=== PATIENT | female | born 1965 | race Caucasian/White ===

== ENCOUNTER 2019-08-28 18:16 | Inpatient (IN) ==
[2019-08-28] MEDS ORDERED: IOPAMIDOL 100 ML BOTTLE IV ONE (18:17)
[2019-08-28] MEDS ORDERED: ONDANSETRON 4 MG/2 ML VIAL IV ONE ×2 (18:42→22:50)
[2019-08-28] MEDS ORDERED: LACTATED RINGERS 1,000 ML IV ONE (18:42)
--- NOTE | 2019-08-28 18:44 | Emergency Department Note ---
Abdominal Pain HPI - General Chief Complaint: Abdominal Pain Stated Complaint: Right sided abdominal pain Time Seen by Provider: 08/28/19 18:38 Source: patient Mode of arrival: ambulatory Limitations: no limitations - History of Present Illness HPI Narrative: This patient has had right lower quadrant pain since last evening. It has gotten worse and is associated with some nausea and vomiting. She thought she was constipated and tried some mag citrate without relief. - Related Data Previous Rx's Medication Instructions Recorded sulfamethoxazole 800 1 tab PO BID #20 tab 04/16/18 mg-trimethoprim 160 mg tablet Allergies Allergy/AdvReac Type Severity Reaction Status Date / Time Penicillins Allergy Intermediate Hives Verified 04/16/18 11:24 Review of Systems All systems ED: reviewed and negative except as stated. Abdominal Pain PMH - Past Medical History [facility] Narrative: Medical History (Last Reviewed 04/16/18 @ 11:44 by Randi Sanches DO) Crush injury of left foot (Acute) Contusion of foot, left (Acute) Medical history: Reports: no medical history WASTE HAND history: Reports: non-contributory - Social History Smoking status: Current every day smoker Physical Exam Limitations: no limitations General appearance: alert Head: atraumatic Eye: Present: normal appearance ENT: Present: normal exam Neck: Present: normal inspection Chest: Present: normal inspection Respiratory: Present: normal lung sounds bilaterally Cardiovascular: Present: regular rate, normal rhythm, normal heart sounds Abdominal: Present: soft, tenderness, guarding, diminished bowel sounds. Absent: distention, rebound, rigidity Abdominal tenderness: Present: RLQ, moderate Neurological: Present: alert Psychiatric: Present: normal affect Skin: Present: warm, dry Course Vital Signs Temperature 98.4 F 08/28/19 18:16 Pulse Rate 91 H 08/28/19 18:16 Respiratory Rate 20 08/28/19 18:16 Blood Pressure 104/69 08/28/19 18:16 Pulse Oximetry (%) 97 08/28/19 18:16 Temperature 98.4 F 08/28/19 18:16 Pulse Rate 81 08/28/19 21:16 Respiratory Rate 20 08/28/19 18:16 Blood Pressure 111/68 08/28/19 21:16 Pulse Oximetry (%) 96 08/28/19 21:16 Abdominal Pain - [facility] Narrative Medical decision making narrative: CT scan shows acute appendicitis with marked dilatation of the appendix and some fluid around the appendiceal area. I discussed the case with the surgeon who will come to see the patient. - Lab Data Lab results reviewed: Yes I reviewed the patient's lab results. Result diagrams: 08/28/19 18:48 08/28/19 18:48 Lab Results 08/28/19 08/28/19 08/28/19 Range/Units 18:48 18:48 18:48 WBC 17.6 H (4.50-11.00) K/mcL RBC 4.84 (3.59-5.38) M/mcL Hgb 14.6 (11.2-15.7) g/dL Hct 43.7 (34.1-44.9) % POC Hct (36.0-48.0) % MCV 90.3 (80.0-100.0) fL MCH 30.2 (26.0-34.0) pg MCHC 33.4 (31.0-36.0) g/dL RDW 14.3 (11.5-14.5) % Plt Count 257 (140-440) K/mcL MPV 11.6 H (7.4-10.4) fL Gran % 86.1 H (38.0-78.0) % Lymph % (Auto) 7.4 L (15.5-49.0) % [place] % (Auto) 5.9 (1.0-12.0) % Eos % (Auto) 0.4 (0.0-7.0) % Baso % (Auto) 0.2 (0.0-2.0) % Gran # 15.19 H (1.80-8.00) K/mcL Lymph # (Auto) 1.30 L (1.50-4.80) K/mcL [place] # (Auto) 1.04 H (0.10-0.90) K/mcL Eos # (Auto) 0.07 (0.00-0.70) K/mcL Baso # (Auto) 0.03 (0.00-0.30) K/mcL POC Sodium (133-145) mmol/L Sodium 134 (133-145) mmol/L POC Potassium (3.3-5.1) mmol/L Potassium 4.2 (3.3-5.1) mmol/L POC Chloride (96-108) mmol/L Chloride 98 (96-108) mmol/L Carbon Dioxide 20 L (22-30) mmol/L POC Total CO2 (22-30) mmol/L Anion Gap 16.0 (8-16) POC BUN (6-20) mg/dl BUN 12 (6-20) mg/dl Creatinine 0.8 (0.6-1.1) mg/dl POC Creatinine (0.6-1.1) mg/dl GFR Calculation 82 Glucose 107 H (70-105) mg/dL POC Glucose (70-105) mg/dL Calcium 9.3 (8.6-10.4) mg/dl POC WB Ioniz Calcium (1.16-1.32) mmol/L Total Bilirubin 0.4 (0.0-1.0) mg/dL AST 22 (0-37) U/l ALT 20 (0-40) U/l Alkaline Phosphatase 109 (39-117) U/L Total Protein 7.2 (5.9-8.4) gm/dL Albumin 4.5 (3.2-5.2) gm/dL Globulin 2.7 (2.2-3.7) gm/dL Albumin/Globulin Ratio 1.7 (1.0-2.3) Lipase 57 (7-60) U/L Urine Color Yellow Urine Appearance Turbid Urine pH 5.0 (5.0-9.0) Ur Specific [place] 1.025 (1.000-1.035) Urine Protein Neg (NEG) mg/dL Urine Glucose (UA) Negative (NEG) mg/dL Urine Ketones Neg (NEG) mg/dL Urine Occult Blood 0.2 A (<0.03) mg/dL Urine Nitrate Neg (NEG) Urine Bilirubin Neg (NEG) mg/dL Urine Urobilinogen Neg (NEG) mg/dL Ur Leukocyte Esterase Neg (NEG) /uL Urine RBC 2 H (0-1) /hpf Urine WBC 2 (0-4) /hpf Ur Squamous Epith Cells 4 (0-4) /hpf Urine Bacteria 0 (0) /hpf Urine Mucus Many A (0) /hpf Ur Culture Indicated? No 08/28/19 Range/Units 18:53 WBC (4.50-11.00) K/mcL RBC (3.59-5.38) M/mcL Hgb (11.2-15.7) g/dL Hct (34.1-44.9) % POC Hct 45.0 (36.0-48.0) % MCV (80.0-100.0) fL MCH (26.0-34.0) pg MCHC (31.0-36.0) g/dL RDW (11.5-14.5) % Plt Count (140-440) K/mcL MPV (7.4-10.4) fL Gran % (38.0-78.0) % Lymph % (Auto) (15.5-49.0) % [place] % (Auto) (1.0-12.0) % Eos % (Auto) (0.0-7.0) % Baso % (Auto) (0.0-2.0) % Gran # (1.80-8.00) K/mcL Lymph # (Auto) (1.50-4.80) K/mcL [place] # (Auto) (0.10-0.90) K/mcL Eos # (Auto) (0.00-0.70) K/mcL Baso # (Auto) (0.00-0.30) K/mcL POC Sodium 135 (133-145) mmol/L Sodium (133-145) mmol/L POC Potassium 4.2 (3.3-5.1) mmol/L Potassium (3.3-5.1) mmol/L POC Chloride 103 (96-108) mmol/L Chloride (96-108) mmol/L Carbon Dioxide (22-30) mmol/L POC Total CO2 25 (22-30) mmol/L Anion Gap (8-16) POC BUN 15 (6-20) mg/dl BUN (6-20) mg/dl Creatinine (0.6-1.1) mg/dl POC Creatinine 0.8 (0.6-1.1) mg/dl GFR Calculation Glucose (70-105) mg/dL POC Glucose 107 H (70-105) mg/dL Calcium (8.6-10.4) mg/dl POC WB Ioniz Calcium 1.12 L (1.16-1.32) mmol/L Total Bilirubin (0.0-1.0) mg/dL AST (0-37) U/l ALT (0-40) U/l Alkaline Phosphatase (39-117) U/L Total Protein (5.9-8.4) gm/dL Albumin (3.2-5.2) gm/dL Globulin (2.2-3.7) gm/dL Albumin/Globulin Ratio (1.0-2.3) Lipase (7-60) U/L Urine Color Urine Appearance Urine pH (5.0-9.0) Ur Specific [place] (1.000-1.035) Urine Protein (NEG) mg/dL Urine Glucose (UA) (NEG) mg/dL Urine Ketones (NEG) mg/dL Urine Occult Blood (<0.03) mg/dL Urine Nitrate (NEG) Urine Bilirubin (NEG) mg/dL Urine Urobilinogen (NEG) mg/dL Ur Leukocyte Esterase (NEG) /uL Urine RBC (0-1) /hpf Urine WBC (0-4) /hpf Ur Squamous Epith Cells (0-4) /hpf Urine Bacteria (0) /hpf Urine Mucus (0) /hpf Ur Culture Indicated? - Radiology Data Radiology results reviewed: Yes I reviewed the patient's radiology results. Disposition Pt seen by [employer]/PA only: No Clinical Impression: Acute appendicitis Disposition: Xfer As Outpt/Obs ([facility]) Condition: Good Referrals: No,PCP [Primary Care Provider] - Time of Disposition: 21:22
[2019-08-28] MEDS ORDERED: HYDROmorphone 2 MG/ML VIAL IV SCH (18:45)
[2019-08-28 18:57] LABS: POC Blood Urea Nitrogen 15 mg/dl (6-20); POC CO2 25 mmol/L (22-30); POC Calcium, Ionized 1.12 mmol/L (1.16-1.32); POC Chloride 103 mmol/L (96-108); POC Creatinine 0.8 mg/dl (0.6-1.1); POC Glucose, Random 107 mg/dL (70-105); POC Potassium 4.2 mmol/L (3.3-5.1); POC Sodium 135 mmol/L (133-145)
[2019-08-28 19:35] LABS: Basophils # (Auto) 0.03 K/mcL (0.00-0.30); Basophils % (Auto) 0.2 % (0.0-2.0); Eosinophils # (Auto) 0.07 K/mcL (0.00-0.70); Eosinophils % (Auto) 0.4 % (0.0-7.0); Granulocytes % (Auto) 86.1 % (38.0-78.0); Hematocrit 43.7 % (34.1-44.9); Hemoglobin 14.6 g/dL (11.2-15.7); Lymphocytes % (Auto) 7.4 % (15.5-49.0); Mean Cell Volume 90.3 fL (80.0-100.0); Mean Corpuscular HGB Conc 33.4 g/dL (31.0-36.0); Mean Platelet Volume 11.6 fL (7.4-10.4); Monocytes # (Auto) 1.04 K/mcL (0.10-0.90); Monocytes % (Auto) 5.9 % (1.0-12.0); Platelet Count 257 K/mcL (140-440); RBC 4.84 M/mcL (3.59-5.38); Red Cell Distribution Width 14.3 % (11.5-14.5); WBC 17.6 K/mcL (4.50-11.00)
[2019-08-28 19:46] LABS: Appearance,Urine TURBID; Bacteria,Urine 0 /hpf (0); Bilirubin,Urine NEG (NEG); Color,Urine YELLOW; Culture Indicated,Urine NO; Glucose,Urine (UA) NEGATIVE (NEG); Ketones,Urine NEG (NEG); Leukocyte Esterase,Urine NEG /uL (NEG); Mucus,Urine MANY /hpf (0); Nitrate,Urine NEG (NEG); Protein,Urine NEG (NEG); Specific Gravity,Urine 1.025 (1.000-1.035); Urine Blood 0.2 mg/dL (<0.03); Urine RBC 2 /hpf (0-1); Urine Squamous Epithelial Cell 4 /hpf (0-4); Urine WBC 2 /hpf (0-4); Urobilinogen,Urine NEG (NEG)
--- NOTE | 2019-08-28 19:46 | Cat Scan Report ---
CLINICAL INFORMATION: Right lower quadrant pain COMPARISON: None. TECHNIQUE: Following enteric contrast, 80 cc of Isovue-370 were injected intravenously, and 60 seconds later, 0.625 mm helical slices were obtained from the mid heart through the subtrochanteric regions. Following reconstruction, 2.5 mm sagittal, coronal and axial reformatted images were processed and reviewed at bone, lung and soft tissue windows. Five minutes later, 0.625 mm helical slices were obtained from the mid heart through the kidneys and viewed at soft tissue windows.The exam was performed using radiation dose optimization techniques including, but not limited to, automated exposure control, adjustment of the mA and/or kV according to patient size and use of iterative reconstruction technique. FINDINGS: Lung bases show no abnormality. No effusions. The visualized heart is normal. Abdominal images show mild fatty change of the liver with scattered simple hepatic cysts ranging up to 2.6 cm in the lateral segment of the left hepatic lobe. Gallbladder and bile ducts are normal: CBD is 5 mm. Both kidneys, adrenal glands, spleen, pancreas and aorta, aortic branches are normal in size configuration and attenuation without focal lesion. There is no free air, free fluid or adenopathy Pelvic images show hysterectomy changes. Ovaries not identified and are likely surgically absent. Urinary bladder is unremarkable. The appendix, located in the lateral pericecal region, is massively dilated with diameter of 17 mm. There is also moderate wall thickening and inflammation of the periappendiceal fat. The cecal wall shows mild sympathetic thickening and there is a 7.2 cm thin-walled fluid collection in the medial pericecal region. This may represent an abscess. The stomach, small bowel and large bowel are unremarkable. Bone windows show no osseous abnormality. IMPRESSION: 1. Appendicitis. The appendix is massively dilated in a prerupture state. It is located in the lateral pericecal region. A 7 x 2 cm fluid collection, likely an abscess, is located in the medial pericecal region. 2. Scattered simple hepatic cysts ranging up to 2.6 cm Interpreted and Authenticated by: Ventura Cano 08/28/19
[2019-08-28 19:52] LABS: ALT/SGPT 20 U/l (0-40); AST/SGOT 22 U/l (0-37); Albumin 4.5 gm/dL (3.2-5.2); Albumin/Globulin Ratio 1.7 (1.0-2.3); Alkaline Phosphatase 109 U/L (39-117); Bilirubin,Total 0.4 mg/dL (0.0-1.0); Blood Urea Nitrogen 12 mg/dl (6-20); Calcium 9.3 mg/dl (8.6-10.4); Carbon Dioxide 20 mmol/L (22-30); Chloride 98 mmol/L (96-108); Globulin 2.7 gm/dL (2.2-3.7); Glomerular Filtration Rate 82; Glucose 107 mg/dL (70-105)
[2019-08-28] MEDS ORDERED: LEVOFLOXACIN 750 MG/150 ML BAG IV ONE (20:26)
[2019-08-28] MEDS ORDERED: metroNIDAZOLE 500 MG/100 ML BAG IV ONE (20:26)
[2019-08-28] MEDS: HYDROmorphone 2 MG/ML VIAL IV PRN ×2 (20:51→21:55)
--- NOTE | 2019-08-28 22:04 | General Surg History&Physical ---
History of Present Illness Patient information: Note initiated : 08/28/19 at 10:02 pm Service Date, if different from initiated Date: [] Patient: Tadeo Reyes a 54 y/o F admitted on for Right sided abdominal pain. Chief Complaint: abdominal pain HPI: Ms. Reyes is a 54 year old F came to the emergency room at [facility] this evening with a complaint of one day of right lower quadrant pain. She initially thought that this was related to constipation and took magnesium citrate. She had abundant bowel activity but the pain persisted and worsened. She reports having had chills but denies having known fever. She denies prior similar symptoms. She denies any past history of GI disease. She reports sever al sections and a "partial hysterectomy" both of which were done in an open fashion. Review of Systems - Gastrointestinal abdominal pain, no diarrhea, no nausea, no vomiting Past History Past medical history: Medical History (Last Reviewed 04/16/18 @ 11:44 by Randi Sanches DO) Crush injury of left foot (Acute) Contusion of foot, left (Acute) Past family history: Non-contributory Past social history: Here with SO and daughter Medications and Allergies Home Medications Medication Instructions Recorded Confirmed Type No Known Home Meds 08/28/19 08/28/19 History Allergies Allergy/AdvReac Type Severity Reaction Status Date / Time Penicillins Allergy Intermediate Hives Verified 04/16/18 11:24 Exam Temp Pulse Resp BP Pulse Ox 98.4 F 84 20 130/80 99 08/28/19 18:16 08/28/19 21:31 08/28/19 18:16 08/28/19 21:31 08/28/19 21:31 - General physical appearance well developed, well nourished, no distress - Eyes PERRL, normal ocular movement - Cardiovascular Cardiovascular exam IM: Present: normal rate and rhythm - Respiratory normal expansion, normal respiratory effort - Abdomen Abdomen: Present: tender (right lower quadrant), surgical scars. Absent: masses, guarding, rigid, rebound - Integumentary Present: no rash, no growths, no abnormal pigmentation - Neurologic Present: normal coordination, normal sensation - Psychiatric Present: oriented to time, oriented to person, oriented to place, speech is normal, memory intact Results - Results Labs: Laboratory Results - last 24 hr 08/28/19 08/28/19 08/28/19 18:48 18:48 18:48 WBC 17.6 H RBC 4.84 Hgb 14.6 Hct 43.7 POC Hct MCV 90.3 MCH 30.2 MCHC 33.4 RDW 14.3 Plt Count 257 MPV 11.6 H Gran % 86.1 H Lymph % (Auto) 7.4 L [place] % (Auto) 5.9 Eos % (Auto) 0.4 Baso % (Auto) 0.2 Gran # 15.19 H Lymph # (Auto) 1.30 L [place] # (Auto) 1.04 H Eos # (Auto) 0.07 Baso # (Auto) 0.03 POC Sodium Sodium 134 POC Potassium Potassium 4.2 POC Chloride Chloride 98 Carbon Dioxide 20 L POC Total CO2 Anion Gap 16.0 POC BUN BUN 12 Creatinine 0.8 POC Creatinine GFR Calculation 82 Glucose 107 H POC Glucose Calcium 9.3 POC WB Ioniz Calcium Total Bilirubin 0.4 AST 22 ALT 20 Alkaline Phosphatase 109 Total Protein 7.2 Albumin 4.5 Globulin 2.7 Albumin/Globulin Ratio 1.7 Lipase 57 Urine Color Yellow Urine Appearance Turbid Urine pH 5.0 Ur Specific [place] 1.025 Urine Protein Neg Urine Glucose (UA) Negative Urine Ketones Neg Urine Occult Blood 0.2 A Urine Nitrate Neg Urine Bilirubin Neg Urine Urobilinogen Neg Ur Leukocyte Esterase Neg Urine RBC 2 H Urine WBC 2 Ur Squamous Epith Cells 4 Urine Bacteria 0 Urine Mucus Many A Ur Culture Indicated? No 08/28/19 18:53 WBC RBC Hgb Hct POC Hct 45.0 MCV MCH MCHC RDW Plt Count MPV Gran % Lymph % (Auto) [place] % (Auto) Eos % (Auto) Baso % (Auto) Gran # Lymph # (Auto) [place] # (Auto) Eos # (Auto) Baso # (Auto) POC Sodium 135 Sodium POC Potassium 4.2 Potassium POC Chloride 103 Chloride Carbon Dioxide POC Total CO2 25 Anion Gap POC BUN 15 BUN Creatinine POC Creatinine 0.8 GFR Calculation Glucose POC Glucose 107 H Calcium POC WB Ioniz Calcium 1.12 L Total Bilirubin AST ALT Alkaline Phosphatase Total Protein Albumin Globulin Albumin/Globulin Ratio Lipase Urine Color Urine Appearance Urine pH Ur Specific [place] Urine Protein Urine Glucose (UA) Urine Ketones Urine Occult Blood Urine Nitrate Urine Bilirubin Urine Urobilinogen Ur Leukocyte Esterase Urine RBC Urine WBC Ur Squamous Epith Cells Urine Bacteria Urine Mucus Ur Culture Indicated? CT scan - abdomen: report reviewed, image reviewed CT scan - chest: report reviewed, image reviewed (Report and images reviewed. Discussed with radiologist. Impression is that of ruptured appendicitis with stool and gas filled dilated appendix.) Assessment and Plan (1) Acute appendicitis Impression is of acute appendicitis with perforation and abscess. I had a discussion with the patient regarding her options including appendectomy as well as percutaneous drain placement and delayed interval appendectomy. She wishes to proceed with appendectomy at this time to prevent future need for surgery or other possible complications arising following percutaneous drainage. She understands that an open technique will be needed for immediate appendectomy and drainage of abscess. She understands the likelihood surgical drain will be placed and that several days in the hospital will be likely needed for recurrent recovery. She understands that the abscess frequently is associated with a large amount of inflammation and indurated tissue that can involve adjacent structures such as bowel and bladder and that there is potential for injury to the structures inadvertently during appendectomy and abscess drainage. Understanding all of the above she voices her desire to proceed with open appendectomy as soon as possible. Status: Acute Qualifiers: Appendicitis perforation presence: with perforation Appendicitis abscess presence: with abscess
[2019-08-28] MEDS ORDERED: MAGNESIUM HYDROXIDE 30 ML ORAL.SUSP PO PRN (22:18)
[2019-08-28] MEDS ORDERED: ACETAMINOPHEN 325 MG TABLET PO PRN (22:18)
[2019-08-28] MEDS ORDERED: ONDANSETRON 4 MG/2 ML VIAL IV PRN ×2 (22:18→23:16)
[2019-08-28] MEDS ORDERED: KETOROLAC 30 MG/ML VIAL IV PRN (22:18)
[2019-08-28] MEDS ORDERED: LACTATED RINGERS 1,000 ML IV SCH ×2 (22:30→23:30)
[2019-08-28] MEDS ORDERED: LEVOFLOXACIN 500 MG/100 ML BAG IV SCH (22:30)
[2019-08-28] MEDS ORDERED: metroNIDAZOLE 500 MG/100 ML BAG IV SCH (22:30)
[2019-08-28] MEDS ORDERED: fentaNYL 100 MCG/2 ML VIAL IV ONE ×2 (22:50→23:56)
[2019-08-28] MEDS ORDERED: ROPIVACAINE HCL/PF 30 ML VIAL IJ ONE (22:50)
[2019-08-28] MEDS ORDERED: ROCURONIUM 10 MG/ML ML IV ONE (22:50)
[2019-08-28] MEDS ORDERED: PROPOFOL 200 MG/20 ML VIAL IV ONE (22:50)
[2019-08-28] MEDS ORDERED: LIDOCAINE HCL/PF 100 MG/5 ML SYRINGE IV ONE (22:50)
[2019-08-28] MEDS ORDERED: GLYCOPYRROLATE 0.2 MG/ML VIAL IV ONE (22:50)
[2019-08-28] MEDS ORDERED: MIDAZOLAM 2 MG/2 ML VIAL IV ONE (22:50)
[2019-08-28] MEDS ORDERED: NEOSTIGMINE 1 MG/ML VIAL IV ONE (22:50)
[2019-08-28] MEDS ORDERED: DEXAMETHASONE 10 MG/ML VIAL IV ONE (22:50)
[2019-08-28] MEDS ORDERED: IPRATROPIUM/ALBUTEROL 3 ML AMPUL.NEB NEB PRN (23:16)
[2019-08-28] MEDS ORDERED: HYDROmorphone 2 MG/ML VIAL IV PRN (23:16)
[2019-08-28] MEDS ORDERED: PROMETHAZINE 25 MG/ML VIAL IV PRN (23:16)
[2019-08-28] MEDS ORDERED: MEPERIDINE 25 MG/ML SYRINGE IV PRN (23:16)
[2019-08-28] MEDS ORDERED: KETOROLAC 15 MG/ML VIAL IV PRN (23:16)
[2019-08-28] MEDS ORDERED: GUM MASTIC/STORAX/MSAL/ALCOHOL 1 DOSE DROPERETTE TOPICAL ONE (23:34)
--- NOTE | 2019-08-28 23:54 | Brief Operative Note ---
Date of procedure: 08/28/19 Pre-op diagnosis: perforated appendix with abscess Post-op diagnosis: other (gangrenous appendix with the adjacent loculated cloudy fluid collection) Procedure: Open appendectomy Anesthesia: GETA Findings: Gangrenous appendix, apparent full-thickness with loculated cloudy fluid collection adjacent to the base of the appendix Complications: none Surgeon: Aric Mullins Specimens Removed/Pathology: (appendix) Condition: stable Disposition: PACU
[2019-08-28] MEDS: fentaNYL 100 MCG/2 ML VIAL IV PRN (23:58)
[2019-08-29] MEDS: fentaNYL 100 MCG/2 ML VIAL IV PRN (00:06)
[2019-08-29] MEDS ORDERED: fentaNYL 100 MCG/2 ML VIAL IV PRN (00:26)
[2019-08-29] MEDS ORDERED: HYDROmorphone 2 MG/ML VIAL IV SCH (00:26)
[2019-08-29] MEDS ORDERED: MEPERIDINE 25 MG/ML SYRINGE IV PRN (00:26)
[2019-08-29] MEDS ORDERED: MAGNESIUM HYDROXIDE 30 ML ORAL.SUSP PO PRN (00:26)
[2019-08-29] MEDS ORDERED: PROMETHAZINE 25 MG/ML VIAL IV PRN (00:26)
[2019-08-29] MEDS ORDERED: ONDANSETRON 4 MG/2 ML VIAL IV PRN ×2 (00:26)
[2019-08-29] MEDS ORDERED: IPRATROPIUM/ALBUTEROL 3 ML AMPUL.NEB NEB PRN (00:26)
[2019-08-29] MEDS ORDERED: HYDROmorphone 2 MG/ML VIAL IV PRN ×2 (00:26)
[2019-08-29] MEDS ORDERED: KETOROLAC 15 MG/ML VIAL IV PRN (00:26)
[2019-08-29] MEDS: LACTATED RINGERS 1,000 ML IV SCH ×4 (00:37→22:39)
[2019-08-29] MEDS ORDERED: HYDROmorphone 2 MG/ML VIAL ONE (00:40)
[2019-08-29] MEDS ORDERED: KETOROLAC 30 MG/ML VIAL ONE (00:41)
[2019-08-29] MEDS: KETOROLAC 30 MG/ML VIAL IV SCH ×4 (01:16→18:03)
[2019-08-29] MEDS ORDERED: 0.9 % SODIUM CHLORIDE 10 ML SYRINGE IV SCH (06:00)
[2019-08-29] MEDS: 0.9 % SODIUM CHLORIDE 10 ML SYRINGE IV SCH ×3 (06:16→21:32)
[2019-08-29] MEDS: metroNIDAZOLE 500 MG/100 ML BAG IV SCH ×3 (06:32→21:29)
[2019-08-29] MEDS: HEPARIN 5,000 UNIT/ML VIAL SQ SCH ×2 (08:50→21:31)
[2019-08-29] MEDS ORDERED: HEPARIN 5,000 UNIT/ML VIAL SQ SCH (09:00)
--- NOTE | 2019-08-29 09:22 | General Surgery Progress Note ---
Subjective Patient reports: no new complaints, tolerating liquids well, afebrile Narrative: Note initiated : 08/29/19 at 9:21 am Service Date, if different from initiated Date: [] Patient: Tadeo Reyes 54 y/o F admitted on 08/29/19 for Right sided abdominal pain. Chief Complaint: s/p open appe Pertinent ROS: Tolerating clears, no nausea Objective Temp Pulse Resp BP Pulse Ox 98.4 F 66 18 91/59 93 08/29/19 08:00 08/29/19 08:00 08/29/19 08:00 08/29/19 08:00 08/29/19 08:00 - Additional Data Intake & Output - Last 24 hours: Intake & Output 08/27/19 08/28/19 08/29/19 08/30/19 05:59 05:59 05:59 05:59 Intake Total 2303 1660 Output Total 57 225 Balance 2246 1435 Weight 150 lb - General physical appearance no distress - Respiratory normal respiratory effort - Abdomen soft, non tender - Labs 08/28/19 18:48 08/28/19 18:48 Diabetes panel 08/28/19 Range/Units 18:48 Sodium 134 (133-145) mmol/L Potassium 4.2 (3.3-5.1) mmol/L Chloride 98 (96-108) mmol/L Carbon Dioxide 20 L (22-30) mmol/L BUN 12 (6-20) mg/dl Creatinine 0.8 (0.6-1.1) mg/dl Glucose 107 H (70-105) mg/dL Calcium 9.3 (8.6-10.4) mg/dl AST 22 (0-37) U/l ALT 20 (0-40) U/l Alkaline Phosphatase 109 (39-117) U/L Total Protein 7.2 (5.9-8.4) gm/dL Albumin 4.5 (3.2-5.2) gm/dL Calcium panel 08/28/19 Range/Units 18:48 Calcium 9.3 (8.6-10.4) mg/dl Albumin 4.5 (3.2-5.2) gm/dL Pituitary panel 08/28/19 Range/Units 18:48 Sodium 134 (133-145) mmol/L Potassium 4.2 (3.3-5.1) mmol/L Chloride 98 (96-108) mmol/L Carbon Dioxide 20 L (22-30) mmol/L BUN 12 (6-20) mg/dl Creatinine 0.8 (0.6-1.1) mg/dl Glucose 107 H (70-105) mg/dL Calcium 9.3 (8.6-10.4) mg/dl Adrenal panel 08/28/19 Range/Units 18:48 Sodium 134 (133-145) mmol/L Potassium 4.2 (3.3-5.1) mmol/L Chloride 98 (96-108) mmol/L Carbon Dioxide 20 L (22-30) mmol/L BUN 12 (6-20) mg/dl Creatinine 0.8 (0.6-1.1) mg/dl Glucose 107 H (70-105) mg/dL Calcium 9.3 (8.6-10.4) mg/dl Total Bilirubin 0.4 (0.0-1.0) mg/dL AST 22 (0-37) U/l ALT 20 (0-40) U/l Alkaline Phosphatase 109 (39-117) U/L Total Protein 7.2 (5.9-8.4) gm/dL Albumin 4.5 (3.2-5.2) gm/dL Assessment and Plan (1) Acute appendicitis Status: Acute Assessment and plan: S/P open appe with wound contamination. Advance diet slowly as tolerated Ambulate Symptom management Await bowel function Anticipate dressing change tomorrow Dr. Jeffers will follow from here Current Visit: Yes - Time Spent With Patient Total time spent is greater than 50% in coordination of care (as documented) at patient's floor/unit and/or counseling patient:
[2019-08-29] MEDS: LEVOFLOXACIN 500 MG/100 ML BAG IV SCH (14:04)
[2019-08-30] MEDS: KETOROLAC 30 MG/ML VIAL IV SCH ×4 (00:08→17:58)
[2019-08-30] MEDS: 0.9 % SODIUM CHLORIDE 10 ML SYRINGE IV SCH ×3 (06:01→21:33)
[2019-08-30] MEDS: metroNIDAZOLE 500 MG/100 ML BAG IV SCH ×3 (06:01→21:32)
--- NOTE | 2019-08-30 07:19 | Operative Note ---
DATE OF OPERATION: 08/29/2019 DATE OF PROCEDURE: 08/28/2019 PREOPERATIVE DIAGNOSIS: Perforated appendicitis with abscess. POSTOPERATIVE DIAGNOSIS: Gangrenous appendix with adjacent loculated fluid collection. PROCEDURE PERFORMED: Open appendectomy with drainage of adjacent loculated fluid collection and washout. SURGEON: Aric Mullins M.D. ANESTHESIA: General. ESTIMATED BLOOD LOSS: Negligible. COMPLICATIONS: None. SPECIMEN: Appendix. DRAINS: None. PROCEDURE IN DETAIL: After induction of general anesthetic, patient's abdomen was cleaned with ChloraPrep solution prior to being sterilely draped. An infraumbilical incision was made in the previous vertical midline section scar. Midline fascia was divided, and the peritoneum was entered under direct vision. The abdominal contents were examined. There was noted to be an inflamed, dilated appendix with areas of what appeared to be full-thickness necrosis. A window was made in the appendiceal mesentery at the base of the appendix. The stapler was then used to come across the base of the appendix. The appendiceal mesentery was divided using a LigaSure-type instrument. Good hemostasis was noted. The appendix was sent for pathological examination. Examination of the pelvis revealed loculated pericecal fluid collection containing cloudy fluid. These were taken down manually, and 1.5 liters of normal saline was then used to irrigate the pelvis and the right lower quadrant. The bowel and omentum was then returned to its anatomical position. The midline fascia was then closed using a series of [id number] 0 Vicryl sutures. The skin was closed using stainless steel clips between the fairly widely- justina. Quarter-inch Nu Gauze tape was placed as a wick mechanism. The wound was then dressed with Telfa and Tegaderm dressing. The patient was at this point awakened, extubated, and transferred to the recovery room in stable and good condition. DEN:carolyn Job ID: [id number] Doc ID: [id number] Aric Mullins MD
[2019-08-30] MEDS: LEVOFLOXACIN 500 MG/100 ML BAG IV SCH (09:10)
[2019-08-30] MEDS: HEPARIN 5,000 UNIT/ML VIAL SQ SCH ×2 (09:11→21:33)
--- NOTE | 2019-08-30 10:34 | Surgical Pathology Report ---
HISTOLOGY SPECIMEN MICROSCOPIC DIAGNOSIS APPENDIX, APPENDECTOMY: -- PERFORATED ACUTE APPENDICITIS WITH SEROSITIS. (DMT:adj) CLINICAL HISTORY Appendicitis. GROSS DESCRIPTION Received in formalin labeled with the patient information, is a 7.3 cm long by up to 1.7 cm in diameter purple-aguiar appendix with up to 3.8 cm of attached yellow-gaytan adipose tissue. The margin has been stapled closed. Adjacent to the margin there is a 0.5 cm perforation. The lumen contains thick red-brown fecal material and two yellow-brown fecaliths which area 1.3 and 1.5 cm. Manufacturing Engineering Manager sections submitted - two cassettes. (STS:sln) Electronically Signed by: eKn Gustafson M.D.
[2019-08-30] MEDS: LACTATED RINGERS 1,000 ML IV SCH (13:09)
--- NOTE | 2019-08-30 14:33 | General Surgery Progress Note ---
Subjective Patient reports: feels better, pain is less, tolerating liquids well, flatus, bowel movement, afebrile Narrative: Note initiated : 08/30/19 at 2:31 pm Service Date, if different from initiated Date: [] Patient: Tadeo Reyes 54 y/o F admitted on 08/29/19 for Right sided abdominal pain. Chief Complaint: [patient is stable. She is afebrile. She is tolerating clear liquids without difficulty passing flatus and bowel movement. She denies nausea. Her last white blood count was 17.6, so it will be repeated Today.] Objective Temp Pulse Resp BP Pulse Ox 98.9 F 68 14 93/59 94 08/30/19 07:15 08/30/19 07:21 08/30/19 07:21 08/30/19 07:15 08/30/19 07:21 - Additional Data Intake & Output - Last 24 hours: Intake & Output 08/28/19 08/29/19 08/30/19 08/31/19 05:59 05:59 05:59 05:59 Intake Total 2303 5040 1935 Output Total 57 2325 2550 Balance 2246 2715 -615 Weight 150 lb 154 lb 11.2 oz 154 lb 11.2 oz - General physical appearance well developed, well nourished, no distress, moderate pain - Eyes PERRL, normal ocular movement - ENT normal pinna, normal nares, normal mucosa, no hearing loss, no congestion - Neck no masses, no bruits, trachea midline, no lymphadenopathy, no venous distension - Respiratory normal expansion, normal respiratory effort, clear to auscultation - Cardiovascular Cardiovascular exam: Present: normal rate and rhythm, RRR, +S1, +S2. Absent: JVD, tachycardia - Abdomen non tender, bowel sounds (present), surgical scars ( incision looks good; dressing was changed; minimal drainage noted), masses (none) - Integumentary no rash, no growths, no abnormal pigmentation - Neurologic normal coordination, normal sensation - Psychiatric oriented to time, oriented to person, oriented to place, speech is normal, memory intact - Labs 08/28/19 18:48 08/28/19 18:48 Assessment and Plan (1) Acute appendicitis Status: Acute Assessment and plan: Check CBC, CMP today Current Visit: Yes - Time Spent With Patient Total time spent is greater than 50% in coordination of care (as documented) at patient's floor/unit and/or counseling patient:
[2019-08-30] MEDS: ACETAMINOPHEN 325 MG TABLET PO PRN (21:40)
[2019-08-31 01:49] LABS: ALT/SGPT 12 U/l (0-40); AST/SGOT 17 U/l (0-37); Albumin 3.3 gm/dL (3.2-5.2); Alkaline Phosphatase 73 U/L (39-117); Bilirubin,Direct < 0.2 mg/dL (0.0-0.3); Bilirubin,Total 0.2 mg/dL (0.0-1.0); Blood Urea Nitrogen 13 mg/dl (6-20); Calcium 8.3 mg/dl (8.6-10.4); Carbon Dioxide 21 mmol/L (22-30); Chloride 96 mmol/L (96-108); Glomerular Filtration Rate 71; Glucose 75 mg/dL (70-105); Lactate Dehydrogenase 192 U/L (94-250); Phosphorous 2.6 mg/dL (2.7-4.5); Triglycerides 101 mg/dl (<150); Uric Acid 4.7 mg/dL (2.5-8.0)
[2019-08-31 02:12] LABS: Albumin/Globulin Ratio 1.5 (1.0-2.3); Globulin 2.2 gm/dL (2.2-3.7)
[2019-08-31 02:18] LABS: Basophils # (Auto) 0.02 K/mcL (0.00-0.30); Basophils % (Auto) 0.2 % (0.0-2.0); Eosinophils # (Auto) 0.02 K/mcL (0.00-0.70); Eosinophils % (Auto) 0.2 % (0.0-7.0); Granulocytes % (Auto) 67.9 % (38.0-78.0); Hematocrit 32.8 % (34.1-44.9); Hemoglobin 10.8 g/dL (11.2-15.7); Lymphocytes # (Auto) 2.57 K/mcL (1.50-4.80); Lymphocytes % (Auto) 23.9 % (15.5-49.0); Mean Cell Volume 92.4 fL (80.0-100.0); Mean Corpuscular HGB Conc 32.9 g/dL (31.0-36.0); Mean Platelet Volume 11.9 fL (7.4-10.4); Monocytes # (Auto) 0.84 K/mcL (0.10-0.90); Monocytes % (Auto) 7.8 % (1.0-12.0); Platelet Count 201 K/mcL (140-440); RBC 3.55 M/mcL (3.59-5.38); Red Cell Distribution Width 14.7 % (11.5-14.5); WBC 10.7 K/mcL (4.50-11.00)
[2019-08-31] MEDS: metroNIDAZOLE 500 MG/100 ML BAG IV SCH ×3 (05:28→22:08)
[2019-08-31] MEDS: LACTATED RINGERS 1,000 ML IV SCH ×3 (05:28→23:50)
[2019-08-31] MEDS: ACETAMINOPHEN 325 MG TABLET PO PRN ×2 (05:34→20:47)
[2019-08-31 06:26] LABS: Basophils # (Auto) 0.03 K/mcL (0.00-0.30); Basophils % (Auto) 0.3 % (0.0-2.0); Eosinophils % (Auto) 1.1 % (0.0-7.0); Granulocytes % (Auto) 62.7 % (38.0-78.0); Hematocrit 36.8 % (34.1-44.9); Hemoglobin 12.4 g/dL (11.2-15.7); Lymphocytes # (Auto) 2.54 K/mcL (1.50-4.80); Lymphocytes % (Auto) 26.7 % (15.5-49.0); Mean Corpuscular HGB Conc 33.7 g/dL (31.0-36.0); Mean Platelet Volume 11.5 fL (7.4-10.4); Monocytes # (Auto) 0.88 K/mcL (0.10-0.90); Monocytes % (Auto) 9.2 % (1.0-12.0); Platelet Count 228 K/mcL (140-440); RBC 4.09 M/mcL (3.59-5.38); Red Cell Distribution Width 14.2 % (11.5-14.5); WBC 9.5 K/mcL (4.50-11.00)
[2019-08-31] MEDS: 0.9 % SODIUM CHLORIDE 10 ML SYRINGE IV SCH ×3 (06:32→23:28)
[2019-08-31 07:05] LABS: ALT/SGPT 11 U/l (0-40); AST/SGOT 16 U/l (0-37); Albumin 3.2 gm/dL (3.2-5.2); Albumin/Globulin Ratio 1.3 (1.0-2.3); Alkaline Phosphatase 69 U/L (39-117); Bilirubin,Direct < 0.2 mg/dL (0.0-0.3); Bilirubin,Total 0.3 mg/dL (0.0-1.0); Blood Urea Nitrogen 11 mg/dl (6-20); Calcium 8.7 mg/dl (8.6-10.4); Carbon Dioxide 21 mmol/L (22-30); Chloride 102 mmol/L (96-108); Globulin 2.5 gm/dL (2.2-3.7); Glomerular Filtration Rate 63; Glucose 86 mg/dL (70-105); Lactate Dehydrogenase 188 U/L (94-250); Phosphorous 2.7 mg/dL (2.7-4.5); Triglycerides 108 mg/dl (<150); Uric Acid 5.1 mg/dL (2.5-8.0)
[2019-08-31] MEDS: LEVOFLOXACIN 500 MG/100 ML BAG IV SCH (09:13)
[2019-08-31] MEDS: HEPARIN 5,000 UNIT/ML VIAL SQ SCH (09:14)
--- NOTE | 2019-08-31 13:35 | General Surgery Progress Note ---
Subjective Patient reports: no new complaints, feels better, pain is less, tolerating liquids well, flatus, bowel movement, diarrhea, afebrile Narrative: Note initiated : 08/31/19 at 1:33 pm Service Date, if different from initiated Date: [] Patient: Tadeo Reyes 54 y/o F admitted on 08/29/19 for Right sided abdominal pain. Chief Complaint: [patient feels better but she still having some diarrheal stools. She is tolerating her full liquid diet without difficulty. Her pain is well controlled. She denies nausea. White count 9.5, hemoglobin 12.5, potassium 3.8, BUN 11, creatinine 1] Objective Temp Pulse Resp BP Pulse Ox 99.0 F 68 14 115/70 94 08/31/19 08:00 08/31/19 08:15 08/31/19 08:15 08/31/19 08:00 08/31/19 08:15 - Additional Data Intake & Output - Last 24 hours: Intake & Output 08/29/19 08/30/19 08/31/19 09/01/19 05:59 05:59 05:59 05:59 Intake Total 2303 5040 4275 100 Output Total 57 2325 6500 1100 Balance 2246 2715 -2225 -1000 Weight 150 lb 154 lb 11.2 oz 155 lb - General physical appearance well developed, well nourished, no distress - Eyes PERRL, normal ocular movement - ENT normal pinna, normal nares, normal mucosa, no hearing loss, no congestion - Neck no masses, no bruits, trachea midline, no lymphadenopathy, no venous distension - Respiratory normal expansion, normal respiratory effort, clear to auscultation - Cardiovascular Cardiovascular exam: Present: normal rate and rhythm, RRR, +S1, +S2. Absent: JVD, systolic murmur - Abdomen non tender, bowel sounds (present), surgical scars ( small amount of serosanguineous drainage from incision; no cellulitis or induration), masses (none) - Integumentary no rash, no growths, no abnormal pigmentation - Neurologic normal coordination, normal sensation - Musculoskeletal normal gait, normal posture - Psychiatric oriented to time, oriented to person, oriented to place, speech is normal, memory intact - Labs 08/31/19 05:45 08/31/19 05:45 Diabetes panel 08/30/19 08/31/19 Range/Units 14:25 05:45 Sodium 129 L 135 (133-145) mmol/L Potassium 3.7 3.8 (3.3-5.1) mmol/L Chloride 96 102 (96-108) mmol/L Carbon Dioxide 21 L 21 L (22-30) mmol/L BUN 13 11 (6-20) mg/dl Creatinine 0.9 1.0 (0.6-1.1) mg/dl Glucose 75 86 (70-105) mg/dL Calcium 8.3 L 8.7 (8.6-10.4) mg/dl AST 17 16 (0-37) U/l ALT 12 11 (0-40) U/l Alkaline Phosphatase 73 69 (39-117) U/L Total Protein 5.5 L 5.7 L (5.9-8.4) gm/dL Albumin 3.3 3.2 (3.2-5.2) gm/dL Triglycerides 101 108 (<150) mg/dl Calcium panel 08/30/19 08/31/19 Range/Units 14:25 05:45 Calcium 8.3 L 8.7 (8.6-10.4) mg/dl Phosphorus 2.6 L 2.7 (2.7-4.5) mg/dL Albumin 3.3 3.2 (3.2-5.2) gm/dL Pituitary panel 08/30/19 08/31/19 Range/Units 14:25 05:45 Sodium 129 L 135 (133-145) mmol/L Potassium 3.7 3.8 (3.3-5.1) mmol/L Chloride 96 102 (96-108) mmol/L Carbon Dioxide 21 L 21 L (22-30) mmol/L BUN 13 11 (6-20) mg/dl Creatinine 0.9 1.0 (0.6-1.1) mg/dl Glucose 75 86 (70-105) mg/dL Calcium 8.3 L 8.7 (8.6-10.4) mg/dl Adrenal panel 08/30/19 08/31/19 Range/Units 14:25 05:45 Sodium 129 L 135 (133-145) mmol/L Potassium 3.7 3.8 (3.3-5.1) mmol/L Chloride 96 102 (96-108) mmol/L Carbon Dioxide 21 L 21 L (22-30) mmol/L BUN 13 11 (6-20) mg/dl Creatinine 0.9 1.0 (0.6-1.1) mg/dl Glucose 75 86 (70-105) mg/dL Calcium 8.3 L 8.7 (8.6-10.4) mg/dl Total Bilirubin 0.2 0.3 (0.0-1.0) mg/dL AST 17 16 (0-37) U/l ALT 12 11 (0-40) U/l Alkaline Phosphatase 73 69 (39-117) U/L Total Protein 5.5 L 5.7 L (5.9-8.4) gm/dL Albumin 3.3 3.2 (3.2-5.2) gm/dL Assessment and Plan (1) Acute appendicitis Status: Acute Assessment and plan: Patient is clinically stable. Anticipate discharge tomorrow Current Visit: Yes - Time Spent With Patient Total time spent is greater than 50% in coordination of care (as documented) at patient's floor/unit and/or counseling patient:
[2019-08-31] MEDS ORDERED: ONDANSETRON 4 MG/2 ML VIAL ONE (20:37)
[2019-09-01] MEDS: metroNIDAZOLE 500 MG/100 ML BAG IV SCH (06:13)
[2019-09-01] MEDS: LACTATED RINGERS 1,000 ML IV SCH (06:13)
[2019-09-01] MEDS: 0.9 % SODIUM CHLORIDE 10 ML SYRINGE IV SCH (06:16)
[2019-09-01 06:37] LABS: Basophils # (Auto) 0.03 K/mcL (0.00-0.30); Basophils % (Auto) 0.4 % (0.0-2.0); Eosinophils # (Auto) 0.12 K/mcL (0.00-0.70); Eosinophils % (Auto) 1.6 % (0.0-7.0); Granulocytes % (Auto) 58.8 % (38.0-78.0); Hemoglobin 11.6 g/dL (11.2-15.7); Lymphocytes # (Auto) 2.35 K/mcL (1.50-4.80); Lymphocytes % (Auto) 30.6 % (15.5-49.0); Mean Cell Volume 91.6 fL (80.0-100.0); Mean Corpuscular HGB Conc 33.1 g/dL (31.0-36.0); Monocytes # (Auto) 0.66 K/mcL (0.10-0.90); Monocytes % (Auto) 8.6 % (1.0-12.0); Platelet Count 249 K/mcL (140-440); RBC 3.82 M/mcL (3.59-5.38); Red Cell Distribution Width 14.6 % (11.5-14.5); WBC 7.7 K/mcL (4.50-11.00)
[2019-09-01 07:01] LABS: ALT/SGPT 9 U/l (0-40); AST/SGOT 11 U/l (0-37); Albumin 2.9 gm/dL (3.2-5.2); Albumin/Globulin Ratio 1.3 (1.0-2.3); Alkaline Phosphatase 59 U/L (39-117); Bilirubin,Direct < 0.2 mg/dL (0.0-0.3); Bilirubin,Total 0.2 mg/dL (0.0-1.0); Blood Urea Nitrogen 6 mg/dl (6-20); Calcium 8.4 mg/dl (8.6-10.4); Carbon Dioxide 23 mmol/L (22-30); Globulin 2.2 gm/dL (2.2-3.7); Glomerular Filtration Rate 71; Glucose 87 mg/dL (70-105); Lactate Dehydrogenase 149 U/L (94-250); Phosphorous 3.9 mg/dL (2.7-4.5); Triglycerides 80 mg/dl (<150)
[2019-09-01 07:24] LABS: Chloride 110 mmol/L (96-108)
[2019-09-01] MEDS: LEVOFLOXACIN 500 MG/100 ML BAG IV SCH (09:10)
--- NOTE | 2019-09-01 11:35 | General Surgery Progress Note ---
Subjective Patient reports: feels better, pain is less, tolerating a regular diet, flatus, bowel movement, afebrile Narrative: Note initiated : 09/01/19 at 11:32 am Service Date, if different from initiated Date: [] Patient: Tadeo Reyes 54 y/o F admitted on 08/29/19 for Right sided abdominal pain. Chief Complaint: [patient is significantly improved. She denies nausea. Her diarrhea has resolved. She denies any respiratory difficulty. She is tolerating diet without difficulty. White blood count 7.7; hemoglobin 11.6; hematocrit 35] Objective Temp Pulse Resp BP Pulse Ox 98.5 F 76 16 97/59 95 09/01/19 08:00 09/01/19 08:15 09/01/19 08:15 09/01/19 08:00 09/01/19 08:15 - Additional Data Intake & Output - Last 24 hours: Intake & Output 08/30/19 08/31/19 09/01/19 09/02/19 05:59 05:59 05:59 05:59 Intake Total 5040 4275 3090 340 Output Total 2325 6500 4400 400 Balance 2715 -2225 -1310 -60 Weight 154 lb 11.2 oz 155 lb 172 lb 12.8 oz - General physical appearance well developed, well nourished, no distress - Eyes PERRL, normal ocular movement - ENT normal pinna, normal nares, normal mucosa, no hearing loss, no congestion - Neck no masses, no bruits, trachea midline, no lymphadenopathy, no venous distension - Respiratory normal expansion, normal respiratory effort, clear to auscultation - Cardiovascular Cardiovascular exam: Present: normal rate and rhythm, RRR, +S1, +S2. Absent: JVD, tachycardia - Abdomen non tender, bowel sounds (present), surgical scars (incision looks good with minimal drainage; no distention; bowel sounds), masses (none) - Integumentary no rash, no growths, no abnormal pigmentation - Neurologic normal coordination, normal sensation - Musculoskeletal normal gait, normal posture - Psychiatric oriented to time, oriented to person, oriented to place, speech is normal, memory intact - Labs 09/01/19 05:45 09/01/19 05:45 Diabetes panel 09/01/19 Range/Units 05:45 Sodium 142 (133-145) mmol/L Potassium 3.7 (3.3-5.1) mmol/L Chloride 110 H (96-108) mmol/L Carbon Dioxide 23 (22-30) mmol/L BUN 6 (6-20) mg/dl Creatinine 0.9 (0.6-1.1) mg/dl Glucose 87 (70-105) mg/dL Calcium 8.4 L (8.6-10.4) mg/dl AST 11 (0-37) U/l ALT 9 (0-40) U/l Alkaline Phosphatase 59 (39-117) U/L Total Protein 5.1 L (5.9-8.4) gm/dL Albumin 2.9 L (3.2-5.2) gm/dL Triglycerides 80 (<150) mg/dl Calcium panel 09/01/19 Range/Units 05:45 Calcium 8.4 L (8.6-10.4) mg/dl Phosphorus 3.9 (2.7-4.5) mg/dL Albumin 2.9 L (3.2-5.2) gm/dL Pituitary panel 09/01/19 Range/Units 05:45 Sodium 142 (133-145) mmol/L Potassium 3.7 (3.3-5.1) mmol/L Chloride 110 H (96-108) mmol/L Carbon Dioxide 23 (22-30) mmol/L BUN 6 (6-20) mg/dl Creatinine 0.9 (0.6-1.1) mg/dl Glucose 87 (70-105) mg/dL Calcium 8.4 L (8.6-10.4) mg/dl Adrenal panel 09/01/19 Range/Units 05:45 Sodium 142 (133-145) mmol/L Potassium 3.7 (3.3-5.1) mmol/L Chloride 110 H (96-108) mmol/L Carbon Dioxide 23 (22-30) mmol/L BUN 6 (6-20) mg/dl Creatinine 0.9 (0.6-1.1) mg/dl Glucose 87 (70-105) mg/dL Calcium 8.4 L (8.6-10.4) mg/dl Total Bilirubin 0.2 (0.0-1.0) mg/dL AST 11 (0-37) U/l ALT 9 (0-40) U/l Alkaline Phosphatase 59 (39-117) U/L Total Protein 5.1 L (5.9-8.4) gm/dL Albumin 2.9 L (3.2-5.2) gm/dL Assessment and Plan (1) Acute appendicitis Status: Acute Assessment and plan: Patient is stable for discharge Current Visit: Yes - Time Spent With Patient Total time spent is greater than 50% in coordination of care (as documented) at patient's floor/unit and/or counseling patient:
--- NOTE | 2019-09-01 11:39 | Discharge Summary ---
Providers - Providers Patient information: Note initiated : 09/01/19 at 11:36 am Service Date, if different from initiated Date: [] Patient: Tadeo Reyes 54 y/o F admitted on 08/29/19 for Right sided abdominal pain. Chief Complaint: [] Date of admission: 08/28/19 Discharge date: 09/01/19 Attending physician: Aric Mullins Hospitalization Hospital Course: 54-year-old female who presented with acute right lower quadrant pain, nausea, vomiting with leukocytosis. She was found to have acute appendicitis. She had an open appendectomy with findings of a perforated appendix with fluid in the periappendiceal area. She had thorough washout. Her incision is healing uneventfully. Her white blood count is 7.7. She is afebrile. Patient is stable for discharge home. Discharge diagnosis: acute appendicitis with perforation Reason for admission: acute appendicitis Procedures: Open appendectomy Pertinent studies/significant findings: CT of abdomen and pelvis with contrast Complications: None Exam Temp Pulse Resp BP Pulse Ox 98.5 F 76 16 97/59 95 09/01/19 08:00 09/01/19 08:15 09/01/19 08:15 09/01/19 08:00 09/01/19 08:15 - General physical appearance well developed, well nourished, no distress - Eyes PERRL, normal ocular movement - ENT normal pinna, normal nares, normal mucosa, no hearing loss, no congestion - Head Head exam IM: Present: atraumatic, normocephalic - Neck no masses, no bruits, trachea midline, no lymphadenopathy, no venous distension - Cardiovascular Cardiovascular exam IM: Present: normal rate and rhythm - Respiratory normal expansion, normal respiratory effort, clear to percussion, clear to auscultation - Abdomen Abdomen: Present: soft, tender (mild tenderness of the incision;), bowel sounds, surgical scars ( incision looks good with minimal drainage and no erythema or induration) Hernia: Present: none - Genitourinary Present: normal external genitalia - Integumentary Present: no rash, no growths, no abnormal pigmentation - Neurologic Present: normal coordination, normal sensation - Musculoskeletal Present: normal gait, normal posture - Psychiatric Present: oriented to time, oriented to person, oriented to place, speech is normal, memory intact Discharge Plan - Patient/Caregiver Discharge Instructions Activity: increase activity as tolerated Diet: Regular Diet Additional Instructions: Leave dressing in place until your return to the office. Follow-up in the office in 1 week. If U need dressing change before 1 week.., Please contact the office and have the medical physics researcher to change the dressing Prescriptions: Levofloxacin [Levaquin] 750 mg PO DAILY #7 tab Transmission Status: Pending to [facility] 2005 oxyCODONE/APAP [Percocet 5-325 mg] 1 tab PO Q4HP PRN #40 tablet PRN Reason: Pain Transmission Status: Received by [facility] 2005 Promethazine [Phenergan] 25 mg PO Q4HP PRN #20 tab MDD 4 PRN Reason: Pain Transmission Status: Pending to [facility] 2005 - Follow up Plan Follow up with: No,PCP [Primary Care Provider] - Disposition: Home, Self-Care Prognosis: Good Rehab Potential: Good I certify that the patient requires SNF services.: Yes Overall status at discharge: patient is not back to baseline Pending Studies Resuscitation Status Full Code Diet Full Liquid Diet Start ThuAug 30 1357 Acetaminophen (Tylenol) 650 mg PO Q6HP PRN; Protocol PRN Reason: Per Pain Protocol Last Admin: 08/31/19 20:47 Dose: 650 mg Documented by: Admin: 08/31/19 05:34 Dose: 650 mg Documented by: Admin: 08/30/19 21:40 Dose: 650 mg Documented by: HARISH Levofloxacin (Levaquin) 500 mg in 100 mls @ 100 mls/hr IV Q24H COUNTS INCLUDE 234 BEDS AT THE [facility] Last Admin: 09/01/19 09:10 Dose: 100 mls/hr Documented by: [email or web address] Infusion: 08/31/19 23:28 Dose: 0 mls/hr Documented by: HWJOSE CARLOS Admin: 08/31/19 09:13 Dose: 100 mls/hr Documented by: [email or web address] Infusion: 08/30/19 10:10 Dose: 0 mls/hr Documented by: Admin: 08/30/19 09:10 Dose: 100 mls/hr Documented by: [email or web address] Infusion: 08/29/19 15:05 Dose: 0 mls/hr Documented by: [email or web address] Admin: 08/29/19 14:04 Dose: 100 mls/hr Documented by: ASMDavid Metronidazole (Flagyl) 500 mg in 100 mls @ 100 mls/hr IV Q8H ROBERT; Protocol Last Infusion: 09/01/19 07:13 Dose: 100 mls/hr Documented by: [email or web address] Admin: 09/01/19 06:13 Dose: 100 mls/hr Documented by: [email or web address] Infusion: 08/31/19 23:28 Dose: 0 mls/hr Documented by: Admin: 08/31/19 22:08 Dose: 100 mls/hr Documented by: Infusion: 08/31/19 15:33 Dose: 0 mls/hr Documented by: [email or web address] Admin: 08/31/19 14:33 Dose: 100 mls/hr Documented by: [email or web address] Infusion: 08/31/19 06:28 Dose: 0 mls/hr Documented by: [email or web address] Admin: 08/31/19 05:28 Dose: 100 mls/hr Documented by: [email or web address] Infusion: 08/30/19 22:32 Dose: 100 mls/hr Documented by: [email or web address] Admin: 08/30/19 21:32 Dose: 100 mls/hr Documented by: [email or web address] Infusion: 08/30/19 15:17 Dose: 0 mls/hr Documented by: [email or web address] Admin: 08/30/19 14:17 Dose: 100 mls/hr Documented by: [email or web address] Infusion: 08/30/19 07:01 Dose: 100 mls/hr Documented by: [email or web address] Admin: 08/30/19 06:01 Dose: 100 mls/hr Documented by: [email or web address] Infusion: 08/29/19 22:29 Dose: 100 mls/hr Documented by: [email or web address] Admin: 08/29/19 21:29 Dose: 100 mls/hr Documented by: [email or web address] Infusion: 08/29/19 16:20 Dose: 0 mls/hr Documented by: [email or web address] Admin: 08/29/19 15:20 Dose: 100 mls/hr Documented by: [email or web address] Infusion: 08/29/19 07:32 Dose: 0 mls/hr Documented by: [email or web address] Admin: 08/29/19 06:32 Dose: 100 mls/hr Documented by: [email or web address] Lactated Ringer's (Lactated Ringers) 1,000 mls @ 75 mls/hr IV .[id number] ROBERT Last Admin: 09/01/19 06:13 Dose: Not Given Documented by: [email or web address] Admin: 08/31/19 23:50 Dose: 75 mls/hr Documented by: Infusion: 08/31/19 23:50 Dose: 75 mls/hr Documented by: Admin: 08/31/19 15:00 Dose: Not Given Documented by: [email or web address] Admin: 08/31/19 05:28 Dose: 75 mls/hr Documented by: Infusion: 08/31/19 02:29 Dose: 75 mls/hr Documented by: Admin: 08/30/19 13:09 Dose: 75 mls/hr Documented by: Infusion: 08/30/19 13:07 Dose: 0 mls/hr Documented by: Admin: 08/29/19 22:39 Dose: 75 mls/hr Documented by: Admin: 08/29/19 10:21 Dose: Not Given Documented by: [email or web address] Morphine Sulfate (Morphine) 1 - 4 mg IV Q1H PRN; Protocol PRN Reason: Per Pain Protocol Last Admin: 08/31/19 20:48 Dose: 2 mg Documented by: Admin: 08/30/19 21:39 Dose: 2 mg Documented by: Admin: 08/30/19 11:08 Dose: 2 mg Documented by: Admin: 08/29/19 09:05 Dose: 2 mg Documented by: [email or web address] Ondansetron HCl (Zofran) 4 mg IV ONCE PRN PRN Reason: Nausea And Vomiting Last Admin: 08/31/19 20:49 Dose: 4 mg Documented by: DARCIE Sodium Chloride (Saline Flush) 10 ml IV Q8 ROBERT Last Admin: 09/01/19 06:16 Dose: Not Given Documented by: [email or web address] Admin: 08/31/19 23:28 Dose: Not Given Documented by: Admin: 08/31/19 14:34 Dose: Not Given Documented by: ASMDavid Admin: 08/31/19 06:32 Dose: Not Given Documented by: Admin: 08/30/19 21:33 Dose: Not Given Documented by: Admin: 08/30/19 14:09 Dose: Not Given Documented by: Admin: 08/30/19 06:01 Dose: Not Given Documented by: Admin: 08/29/19 21:32 Dose: Not Given Documented by: [email or web address] Admin: 08/29/19 14:04 Dose: Not Given Documented by: [email or web address] Admin: 08/29/19 06:16 Dose: 10 ml Documented by: HARISH Shift Summary 09/01/19 04:59 Shift Summary by Lynn Jackson Post op day 2 open appendectomy. A/O x4. Morphine IV X1, Tylenol X1 for pain. Zofran x1. Has had frequent loose stools, no BM this shift. Voiding in bathroom. Up ad carlos to bathroom. Dressing changes have been done by Dr Jeffers. Dressing C/D/I. SBP in 90's, patient states she runs in the 90's. Discharge today. Bedside report to follow. Initialized on 09/01/19 04:59 - END OF NOTE
== END 2019-09-01 14:50 | disposition home or self-care (01) | DRG 340 ==
LOC: ED 18:16 → SUR 22:28 → MEDSUR 08-29 00:16
PROVIDERS: ADMIT Surgery; ATTEND Family Medicine Adult Medicine